=== PATIENT | male | born 1990 | race African-American/Black ===

== ENCOUNTER 2017-02-15 12:51 | Emergency (ER) | payer SELFPAY ==
[2017-02-15 13:15] VITALS: BP 129/66
[2017-02-15] MEDS ORDERED: Bacitracin Oint 1 GM U/D Packet TOP ONE (13:22)
--- NOTE | 2017-02-15 13:27 | EDM.PDOC ---
ED HPI GENERAL MEDICAL PROBLEM - General Chief Complaint: ENT Problem Stated Complaint: NOSE BLEED Time Seen by Provider: 02/15/17 13:11 - History of Present Illness INITIAL COMMENTS - FREE TEXT/NARRATIVE: HISTORY AND PHYSICAL: History of present illness: The patient is a healthy 26-year-old male who presents with complaints of some bleeding at the left side of his nose that started when he was in the shower us morning. The patient denies any systemic complaints of runny nose is congestion sore throat or bleeding from his nose and has had no fever chills chest pain or shortness of breath. He says he was in the shower washing and he noticed some irritation and bleeding at the left side of his nose and when he got out of the shower he saw some blood and he "panicked" and squeeze the area more blood came out. Currently in the ER it is not bleeding and there is no pain. He seeks evaluation Review of systems: As per history of present illness and below otherwise all systems reviewed and negative. Past medical history: As per history of present illness and as reviewed below otherwise noncontributory. Surgical history: As per history of present illness and as reviewed below otherwise noncontributory. Social history: No reported history of drug or alcohol abuse. Family history: As per history of present illness and as reviewed below otherwise noncontributory. Physical exam: Gen.: Well-developed well-nourished male who is nontoxic and is no evidence of any facial swelling or trauma seen HEENT: Atraumatic, normocephalic, pupils reactive, negative for conjunctival pallor or scleral icterus, mucous membranes moist, throat clear, neck supple, nontender, trachea midline. At the left side of the air on the left there is a small punctate area of irritation but no active bleeding or fluctuance and some surrounding minimal induration from the patient's manipulation. There is no blood in the naris Lungs: Clear to auscultation, breath sounds equal bilaterally, chest nontender. Heart: S1S2, regular rate and rhythm no overt murmurs Abdomen: Soft, nondistended, nontender. NABS Pelvis: Deferred Genitourinary: Deferred. Rectal: Deferred. Extremities: Atraumatic, negative for cords or calf pain. Neurovascular unremarkable. Neuro: Awake, alert, oriented. Cranial nerves II through XII unremarkable. Cerebellum unremarkable. Motor and sensory unremarkable throughout. Exam nonfocal. Diagnostics: [] Therapeutics: Saline cleanse of area and bacitracin Impression: Left external nose skin irritation stable Definitive disposition and diagnosis as appropriate pending reevaluation and review of above. - Related Data Allergies Allergy/AdvReac Type Severity Reaction Status Date / Time No Known Allergies Allergy Verified 02/15/17 13:10 Home Meds: Home Meds . [No Known Home Meds] 02/15/17 [History] Past Medical History - Past Health History Medical/Surgical History: Denies Medical/Surgical History Cardiovascular History: Reports: Heart Murmur Social & Family History - Family History Family Medical History: Noncontributory - Tobacco Use Smoking Status *Q: Current Every Day Smoker Years of Tobacco use: 10 Packs/Tins Daily: 1 - Recreational Drug Use Recreational Drug Use: No ED ROS GENERAL - Review of Systems Review Of Systems: ROS reveals no pertinent complaints other than HPI. ED EXAM, GENERAL - Physical Exam Exam: See Below (See dictation) Course - Vital Signs Last Recorded V/S: Last Vital Signs Temp 36.6 C 02/15/17 13:14 Pulse 104 H 02/15/17 13:14 Resp 18 02/15/17 13:14 BP 129/66 02/15/17 13:14 Pulse Ox 99 02/15/17 13:14 - Orders/Labs/Meds Orders: Active Orders 24 hr Category Date Time Status Communication Order [RC] STAT Care 02/15/17 13:22 Ordered Bacitracin [Bacitracin Oint 1 GM] Med 02/15/17 13:22 Once 1 dose TOP ONETIME ONE Departure - Departure Time of Disposition: 13:26 Disposition: Home, Self-Care 01 Condition: Good Clinical Impression: Skin irritation - Discharge Information Referrals: PCP,None [Primary Care Provider] - Additional Instructions: The following information is given to patients seen in the emergency department who are being discharged to home. This information is to outline your options for follow-up care. We provide all patients seen in our emergency department with a follow-up referral. The need for follow-up, as well as the timing and circumstances, are variable depending upon the specifics of your emergency department visit. If you don't have a primary care physician on staff, we will provide you with a referral. We always advise you to contact your personal physician following an emergency department visit to inform them of the circumstance of the visit and for follow-up with them and/or the need for any referrals to a consulting specialist. The emergency department will also refer you to a specialist when appropriate. This referral assures that you have the opportunity for followup care with a specialist. All of these measure are taken in an effort to provide you with optimal care, which includes your followup. Under all circumstances we always encourage you to contact your private physician who remains a resource for coordinating your care. When calling for followup care, please make the office aware that this follow-up is from your recent emergency room visit. If for any reason you are refused follow-up, please contact the [facility] emergency department at and ask to speak to the emergency department charge nurse. [facility] Primary care- Internal Medicine and Family [address] [address] Please try to be less aggressive with cleaning of your face and apply bacitracin to the area for the next 2 days. Also consider starting using a moisturizer on her face to keep it from getting dry. Please call and follow-up in our clinic using the resources given to above in the next few days for further evaluation and care and return to the ER as needed and as discussed - My Orders Last 24 Hours: My Active Orders 02/15/17 13:22 Communication Order [RC] STAT Bacitracin [Bacitracin Oint 1 GM] 1 dose TOP ONETIME ONE - Assessment/Plan Last 24 Hours: My Active Orders 02/15/17 13:22 Communication Order [RC] STAT Bacitracin [Bacitracin Oint 1 GM] 1 dose TOP ONETIME ONE
== END 2017-02-15 13:42 | disposition home or self-care (01) ==
LOC: MW.ED 12:51
DX: L98.9 Disorder of the skin and subcutaneous tissue, unspecified (principal); F17.210 Nicotine dependence, cigarettes, uncomplicated
CPT/HCPCS: 99282; 99283